=== PATIENT | female | born 1985 | race Caucasian/White ===

== ENCOUNTER 2017-10-30 16:55 | Emergency (ER) | payer SELFPAY ==
--- NOTE | 2017-10-30 18:49 | RAD ---
RADIOGRAPH LEFT ANKLE 3 VIEWS: 10/30/17 HISTORY: 32-year-old female status post acute traumatic injury to the left ankle. FINDINGS: No grossly displaced acute fracture is identified. There is transversely oriented lucency across the distal tip of the lateral malleolus, questionable for a nondisplaced acute fracture. Ankle mortise is symmetrical. Talar dome is maintained. IMPRESSION: 1. Questionable nondisplaced acute avulsion fracture at distal tip of lateral malleolus. 2. Recommend followup. POS: FOX
== END 2017-10-30 18:50 | disposition home or self-care (01) ==
LOC: MADERS 16:55
DX: S82.65XA Nondisplaced fracture of lateral malleolus of left fibula, initial encounter for closed fracture (principal); I10 Essential (primary) hypertension; F17.220 Nicotine dependence, chewing tobacco, uncomplicated; F32.9 Major depressive disorder, single episode, unspecified; Z79.899 Other long term (current) drug therapy; W18.31XA Fall on same level due to stepping on an object, initial encounter

== ENCOUNTER 2018-07-15 15:15 | Emergency (ER) | payer MEDICAID, SELFPAY | END 2018-07-15 16:38 | disposition home or self-care (01) | LOC: MADERS 15:15 | DX: J20.9 Acute bronchitis, unspecified (principal); H92.02 Otalgia, left ear; I10 Essential (primary) hypertension; F41.9 Anxiety disorder, unspecified; F32.9 Major depressive disorder, single episode, unspecified; F17.220 Nicotine dependence, chewing tobacco, uncomplicated; Z79.899 Other long term (current) drug therapy | CPT/HCPCS: 87804; 99283 ==

== ENCOUNTER 2018-10-28 11:49 | Emergency (ER) | payer MEDICAID, SELFPAY ==
--- NOTE | 2018-10-28 12:20 | RAD ---
Exam: XR Ankle Rt 3 View STANDARD HISTORY: Injury to right ankle COMPARISON: None FINDINGS: There is mild subcutaneous soft tissue swelling about the ankle. A plantar calcaneal enthesophyte is seen. No acute fracture, dislocation, or other acute osseous abnormality is identified. IMPRESSION: No acute osseous abnormality is identified.
== END 2018-10-28 12:36 | disposition home or self-care (01) ==
LOC: MADERS 11:49
DX: S93.401A Sprain of unspecified ligament of right ankle, initial encounter (principal); I10 Essential (primary) hypertension; F41.9 Anxiety disorder, unspecified; F32.9 Major depressive disorder, single episode, unspecified; F17.220 Nicotine dependence, chewing tobacco, uncomplicated; E66.01 Morbid (severe) obesity due to excess calories; Z79.899 Other long term (current) drug therapy; W22.8XXA Striking against or struck by other objects, initial encounter

== ENCOUNTER 2019-12-13 18:57 | Emergency (ER) | payer OTHER, SELFPAY ==
[2019-12-15 11:53] LABS: SARS-CoV-2 MS2 Positive; SARS-CoV-2 N Gene Negative; SARS-CoV-2 S Gene Negative; SARS-CoV-2 by NAA Not Detected (NotDetected); SARS-CoV-2 orf1ab Negative
== END 2019-12-13 20:00 | disposition home or self-care (01) ==
LOC: MADERS 18:57
DX: J45.901 Unspecified asthma with (acute) exacerbation (principal); M77.32 Calcaneal spur, left foot; F41.9 Anxiety disorder, unspecified; F31.9 Bipolar disorder, unspecified; F17.220 Nicotine dependence, chewing tobacco, uncomplicated; E66.9 Obesity, unspecified; Z79.899 Other long term (current) drug therapy
CPT/HCPCS: 87635; 99284; U0003

== ENCOUNTER 2021-01-03 21:03 | Emergency (ER) | payer OTHER ==
[~2021-01-03 21:03] MED LIST: Iopamidol 370 76% 125 ML VIAL FS ONE
[2021-01-03 22:58] LABS: #Basophils 0.1 thou/uL (0.0-0.2); #Eosinphils 0.3 thou/uL (0.0-0.7); #Lymphocytes 1.6 thou/uL (1.20-3.40); #Monocytes 0.8 thou/uL (0.11-0.59); #Neutrophils 8.6 thou/uL (1.40-6.50); %Basophils 0.7 % (0.0-1.0); %Eosinophils 2.5 % (0.0-10.0); %Lymphocytes 14.1 % (21.0-51.0); %Monocytes 7.2 % (0.0-10.0); %Neutrophils 75.5 % (42.0-75.0); Hemoglobin 13.2 g/dL (12.0-16.0); Mean Corpuscular HGB CONC 32.2 g/dL (32.0-36.0); Mean Corpuscular Hemoglobin 29.4 pg (27.0-31.0); Mean Corpuscular Volume 91.4 fL (78.0-98.0); Mean Platelet Volume 6.6 fL (7.4-10.4); Platelet Count 332 thou/uL (130-400); RBC Distribution Width 11.8 % (11.5-14.5); Red Blood Cell (RBC) Count 4.48 mill/uL (4.20-5.40); White Blood Cell (WBC) Count 11.4 thou/uL (4.8-10.8)
[2021-01-03 23:24] LABS: BHCG - Serum Negative (NEGATIVE); Pregs Control Background? CLEAR/WHITE (CLR/WHITE); Pregs Control Bar Appear? YES (CONTROL BAR)
[2021-01-03 23:27] LABS: ALT (SGPT) 20 U/L (8-55); AST (SGOT) 17 U/L (5-34); Albumin 3.5 g/dL (3.5-5.0); Alkaline Phosphatase 65 U/L (40-110); Anion Gap 18 mmol/L (10-20); BUN (Urea Nitrogen) 10 mg/dL (7.0-18.7); Bilirubin, Total 0.6 mg/dL (0.2-1.2); Calc. Creatinine Clearance 0 mL/min (70-130); Calcium 9.5 mg/dL (7.8-10.44); Carbon Dioxide 23 mmol/L (22-29); Chloride 102 mmol/L (98-107); Globulin 3.7 g/dL (2.4-3.5); Glucose 97 mg/dL (70-105); Lipase 23 U/L (8-78); Magnesium 1.9 mg/dL (1.6-2.6); Potassium 3.9 mmol/L (3.5-5.1); Protein, Total 7.2 g/dL (6.0-8.3); Sodium 139 mmol/L (136-145)
[2021-01-04] MEDS ORDERED: Pantoprazole 40 MG VIAL ONE (00:53)
[2021-01-04] MEDS ORDERED: Lidocaine Viscous Sol 2% 15 ml UD Cup ONE (00:54)
[2021-01-04] MEDS ORDERED: Mag-Al Plus 1200 MG/1200 MG/120 MG/30 ML UDCUP ONE (00:54)
== END 2021-01-04 01:34 | disposition home or self-care (01) ==
LOC: MADERS 21:03
DX: R10.13 Epigastric pain (principal); R10.11 Right upper quadrant pain; J45.909 Unspecified asthma, uncomplicated; E66.9 Obesity, unspecified; F17.220 Nicotine dependence, chewing tobacco, uncomplicated
CPT/HCPCS: 74177; 80053; 83690; 83735; 84703; 85025; 96374; C9113; Q9967

== ENCOUNTER 2022-01-12 13:16 | Emergency (ER) | payer OTHER ==
[2022-01-12] MEDS ORDERED: Tetracaine 0.5% PF 4 ML BOT ONE (14:16)
[2022-01-12] MEDS ORDERED: Fluorescein Opthalmic Strip ONE (14:16)
== END 2022-01-12 14:30 | disposition home or self-care (01) ==
LOC: MADERS 13:16
DX: B35.8 Other dermatophytoses (principal); I10 Essential (primary) hypertension; F17.220 Nicotine dependence, chewing tobacco, uncomplicated; E66.9 Obesity, unspecified; Z68.45 Body mass index [BMI] 70 or greater, adult
CPT/HCPCS: 99282